=== PATIENT | female | born 1990 | race Caucasian/White ===

== ENCOUNTER 2017-07-14 23:16 | Emergency (ER) | payer BC ==
[2017-07-15 00:03] VITALS: BP 130/80
== END 2017-07-15 00:08 ==
LOC: ER 23:16
DX: Z02.89 Encounter for other administrative examinations (principal); F17.200 Nicotine dependence, unspecified, uncomplicated; F12.10 Cannabis abuse, uncomplicated; Z79.899 Other long term (current) drug therapy
CPT/HCPCS: 99283

== ENCOUNTER 2019-12-23 15:58 | Emergency (ER) | payer SELFPAY ==
[~2019-12-23] VITALS: Ht 167.6 cm; Wt 54.5 kg
[2019-12-23 16:01] VITALS: BP 139/48
[2019-12-23] MEDS ORDERED: LORazepam 2 mg/ml vial IM ONE (16:15)
--- NOTE | 2019-12-23 17:26 | NUR ---
PTS GAVE LAYWERS NAME AND NUMBER TO CALL HIS NAME IS DARRYL [phone], HE GAVE HER MOTHERS NAME AND NUMBER HER MOTHERS NAME IS ELDER HARRINGTON [phone], PSYCIATRIST BHASKAR MANCIA [phone]. AND ANOTHER DR. BAKARI LE [phone]. I WILL CALL TO GET MORE INFOR ABOUT PATIENT AND A MEDICATION LIST FOR PATIENT
--- NOTE | 2019-12-23 17:31 | NUR ---
TRIED TO CALL MOM TO GET MORE INFO I LEFT A MESSAGE
--- NOTE | 2019-12-23 17:46 | NUR ---
PT UP TO BATHROOM TAKING HER WATER BOTTLE WITH HER. RN ATTEMPTED TO PLACE HAT IN TOILET FOR URINE COLLECTION, PT. STATED "I CAN PEE IN THE CUP", BUT DIDN'T. PT STATED SHE HAS TO TALK TO HER MAINTENANCE SUPERVISOR BEFORE LEAVING A SAMPLE OF HER DNA.
--- NOTE | 2019-12-23 17:53 | NUR ---
PT ASKED TO CALL BELEN AND TALK TO HIM, SHE GAVE UA
[2019-12-23] MEDS ORDERED: OLANZapine 2.5MG tablet PO SCH (18:10)
[2019-12-23 18:11] LABS: URINE HCG NEGATIVE (NEG)
[2019-12-23] MEDS ORDERED: olanzapine 10mg tablet PO ONE (18:15)
[2019-12-23 18:23] LABS: URINE AMPHETAMINE SCREEN NEGATIVE (Neg); URINE BARBITUATE SCREEN NEGATIVE (Neg); URINE BENZODIAZEPINES SCREEN NEGATIVE (Neg); URINE CANNABINOID SCREEN POSITIVE (Neg); URINE COCAINE SCREEN NEGATIVE (Neg); URINE METHADONE SCREEN NEGATIVE (Neg); URINE OPIATE SCREEN NEGATIVE (Neg); URINE PHENCYCLIDINE SCREEN NEGATIVE (Neg)
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
--- NOTE | 2019-12-23 20:15 | NUR ---
BREAKING PRIMARY RN- WILL CONT TO MONITOR.
--- NOTE | 2019-12-23 20:28 | NUR ---
RONAK CHAVEZ INQUIRING ABOUT PT'S LAB STATUS- THAT THEY STILL NEED TO BE DRAWN IN ORDER TO MEDICALLY CLEAR PATIENT. WILL LET PRIMARY RN-MICKEY KNOW OF INQUIRY AND TO SPEAK TO RONAK CHAVEZ REGARDING THIS.
--- NOTE | 2019-12-23 21:00 | NUR ---
PT ALLOWED SURVEILLANCE AGENT TO DRAW LABS, WHILE AWAKE PT WAS DISORGANIZED AND RESISTIVE TO CARE
--- NOTE | 2019-12-23 21:10 | NUR ---
PT REFUSED HS ZYPREXA, BLISTER PACKAGING MACHINE OPERATOR ENCOURAGES HER TO TAKE THE MEDICATION, BUT SHE RESPONDS, "NOPE i DON'T NEED IT THANK YOU" AND PULLS THE COVERS OVER HER HEAD.
[2019-12-23 21:30] LABS: BASOPHILS # (AUTO) 0.1 X10'3 (0-0.2); BASOPHILS % (AUTO) 0.4 % (0-1); EOSINOPHILS # (AUTO) 0.1 X10'3 (0-0.9); EOSINOPHILS % (AUTO) 0.6 % (0-6); HEMATOCRIT 37.6 % (35.0-45.0); HEMOGLOBIN 12.4 g/dl (12.0-16.0); LYMPHOCYTES # (AUTO) 2.3 X10'3 (1.1-4.8); LYMPHOCYTES % (AUTO) 19.7 % (21-51); MEAN CORPUSCULAR HEMOGLOBIN 30.8 PG (27.0-31.0); MEAN CORPUSCULAR VOLUME 93.4 FL (78-98); MEAN PLATELET VOLUME 7.7 FL (7.4-10.4); MONOCYTES # (AUTO) 0.5 X10'3 (0-0.9); MONOCYTES % (AUTO) 4.5 % (2-12); NEUTROPHILS # (AUTO) 8.8 X10'3 (1.8-7.7); NEUTROPHILS % (AUTO) 74.8 % (42-75); PLATELET COUNT 291 X10'3 (140-440); RED BLOOD COUNT 4.03 X10'6 (4.20-5.60); RED CELL DISTRIBUTION WIDTH 14.3 % (11.5-14.5); WHITE BLOOD COUNT 11.8 X10'3 (4.5-11.0)
[2019-12-23 21:42] LABS: ALANINE AMINOTRANSFERASE 26 U/L (12-78); ALBUMIN 3.3 G/DL (3.4-5.0); ALBUMIN/GLOBULIN RATIO 1.3 (1.1-1.5); ALKALINE PHOSPHATASE 50 IU/L (46-116); ANION GAP 6 (8-16); ASPARTATE AMINO TRANSFERASE 19 U/L (10-37); BILIRUBIN,TOTAL 0.2 MG/DL (0.1-1.0); BLOOD UREA NITROGEN 9 MG/DL (7-18); CALCIUM 8.3 MG/DL (8.5-10.1); CHLORIDE 109 MMOL/L (99-107); GLUCOSE 97 MG/DL (70-104); POTASSIUM 4.1 MMOL/L (3.5-5.1); SODIUM 142 MMOL/L (135-145); TOTAL CARBON DIOXIDE 27.2 MMOL/L (24-32); TOTAL PROTEIN 5.8 G/DL (6.4-8.2); eGFR 74 ML/MIN
[2019-12-23 21:43] LABS: ETHANOL < 0.010 GM/DL (0.0-0.010)
--- NOTE | 2019-12-23 21:50 | NUR ---
breaking primary RN- will cont to monitor.
--- NOTE | 2019-12-23 22:39 | NUR ---
packet faxed to [facility]
--- NOTE | 2019-12-24 00:47 | NUR ---
PT asleeping on back, RR 14, even and unlabored.
--- NOTE | 2019-12-24 02:58 | NUR ---
Pt wakes up occasionally and makes delusional statements, says names and thinks she has windows around her. She drifts back off to sleep unaided.
--- NOTE | 2019-12-24 05:42 | NUR ---
ATTEMPTED TO TAKE VITALS AT 5:10 PATIENT REFUSED. TRIED AGAIN AT 5:40 PATIENT REFUSED AGAIN
--- NOTE | 2019-12-24 05:50 | NUR ---
PT IS A POOR HISTORIAN AND CANNOT RECALL HER MEDICATIONS. HER MOTHER ALSO DOES NOT KNOW WHAT MEDICATIONS MYLA TAKES. MOTHER STATES SHE WAS AT [facility] 1 YEAR AGO AND ALSO IS A PATIENT OF .
--- NOTE | 2019-12-24 05:58 | NUR ---
PT WAKES UP LABILE, SHE STATES SHE IS AND NEEDS TO GO HOME. THIS RN INFORMS HER THE TEST WAS NEGATIVE AND SHE RESPONDS, "WELL ITS WRONG IT'S A LIE, I AM ." DIESEL LOCOMOTIVE FIRER/FIREMAN TRIES TO ASK PT AGAIN HER MEDICATION REGIMEN AND SHE STATES, "I DON'T HAVE TO TELL YOU THAT." PT TALKS ABOUT SUING THE HOSPITAL FOR DOING A TEST.
[2019-12-24 07:06] LABS: CLARITY,URINE SLIGHTLY CLOUDY (Clear); COLOR,URINE YELLOW (Yellow); GLUCOSE, URINE NEGATIVE (Neg); KETONES,URINE NEGATIVE (Neg); LEUKOCYTE ESTERASE ,URINE NEGATIVE (Neg); NITRITES, URINE NEGATIVE (Neg); OCCULT BLOOD,URINE NEGATIVE (Neg); PH,URINE 8.5 (4.8-8.0); PROTEIN,URINE NEGATIVE (Neg); UROBILINOGEN,URINE 0.2 E.U/dL (0.2-1.0)
[2019-12-24 07:14] LABS: UA COLLECTION TYPE NON-SPECIFIED
[2019-12-24 07:15] LABS: AMORPHOUS PHOSPHATES 1+; BACTERIA,URINE NONE SEEN /HPF (Neg); MUCUS STRANDS FEW /LPF (Neg); RBC,URINE NONE SEEN /HPF (0-2); SQUAMOUS EPITHELIAL CELL,UR FEW /LPF (FEW); WBC,URINE 0-4 /HPF (0-4)
--- NOTE | 2019-12-24 07:17 | NUR ---
PT HAS BEEN UP AND DOWN OUT OF BED TALKING TO HERSELF AND THEN ASKING OF WE CAN CALL HER ATTENY. TALKING ABOUT HOW SHE WANTS TO GO HOME AND DOES NOT LIKE HAVING PEOPLE WATCH HER SLEEP AND MONITER HER ALL NIGHT LONG.
--- NOTE | 2019-12-24 08:52 | NUR ---
breakfast given ate some and now in bed resting
--- NOTE | 2019-12-24 09:36 | NUR ---
patient asleep at this time.We will monitor.
--- NOTE | 2019-12-24 09:58 | NUR ---
pt up a walking around and aggatated wanting her attorneys number given her the number that she wanted. keeps talking that she needs natural light and she does not need to be here and mental health holds do not have to last 3 days. also talking that she should not be exposed to covid like she is being held here. socal worker at bedside talking to her right now
== END 2019-12-24 11:31 | disposition home or self-care (01) ==
LOC: ER 15:59
DX: F23 Brief psychotic disorder (principal); F31.9 Bipolar disorder, unspecified; F12.90 Cannabis use, unspecified, uncomplicated; Z98.890 Other specified postprocedural states; Z88.6 Allergy status to analgesic agent; Z88.5 Allergy status to narcotic agent
CPT/HCPCS: 36415; 80053; 80305; 80320; 81001; 81025; 85025; 96372; 99285; J2060

== ENCOUNTER 2020-01-11 11:31 | Emergency (ER) | payer SELFPAY ==
[~2020-01-11] VITALS: Ht 167.6 cm; Wt 65.9 kg
[~2020-01-11 11:31] MED LIST: DIAZ5TAB PO
[2020-01-11 12:15] LABS: CLARITY,URINE SLIGHTLY CLOUDY (Clear); COLOR,URINE YELLOW (Yellow); GLUCOSE, URINE NEGATIVE (Neg); KETONES,URINE NEGATIVE (Neg); LEUKOCYTE ESTERASE ,URINE NEGATIVE (Neg); NITRITES, URINE NEGATIVE (Neg); OCCULT BLOOD,URINE NEGATIVE (Neg); PROTEIN,URINE NEGATIVE (Neg); URINE HCG NEGATIVE (NEG); UROBILINOGEN,URINE 0.2 E.U/dL (0.2-1.0)
[2020-01-11 12:16] LABS: UA COLLECTION TYPE CLN CATCH MIDSTREAM
[2020-01-11 12:26] LABS: BACTERIA,URINE FEW /HPF (Neg); MUCUS STRANDS FEW /LPF (Neg); RBC,URINE 0-2 /HPF (0-2); SQUAMOUS EPITHELIAL CELL,UR MANY /LPF (FEW); WBC,URINE 0-4 /HPF (0-4)
[2020-01-11 12:27] LABS: AMORPHOUS PHOSPHATES 3+
[2020-01-11 14:10] LABS: URINE AMPHETAMINE SCREEN POSITIVE (Neg); URINE BARBITUATE SCREEN NEGATIVE (Neg); URINE BENZODIAZEPINES SCREEN NEGATIVE (Neg); URINE CANNABINOID SCREEN POSITIVE (Neg); URINE COCAINE SCREEN NEGATIVE (Neg); URINE METHADONE SCREEN NEGATIVE (Neg); URINE OPIATE SCREEN NEGATIVE (Neg); URINE PHENCYCLIDINE SCREEN NEGATIVE (Neg)
[2020-01-11 14:23] LABS: BASOPHILS # (AUTO) 0.1 X10'3 (0-0.2); BASOPHILS % (AUTO) 0.6 % (0-1); EOSINOPHILS % (AUTO) 0.5 % (0-6); HEMATOCRIT 40.8 % (35.0-45.0); HEMOGLOBIN 13.7 g/dl (12.0-16.0); LYMPHOCYTES # (AUTO) 1.7 X10'3 (1.1-4.8); LYMPHOCYTES % (AUTO) 17.5 % (21-51); MEAN CORPUSCULAR HEMOGLOBIN 31.1 PG (27.0-31.0); MEAN CORPUSCULAR HGB CONC 33.6 g/dL (33.0-36.5); MEAN CORPUSCULAR VOLUME 92.5 FL (78-98); MEAN PLATELET VOLUME 7.1 FL (7.4-10.4); MONOCYTES # (AUTO) 0.7 X10'3 (0-0.9); MONOCYTES % (AUTO) 6.8 % (2-12); NEUTROPHILS # (AUTO) 7.4 X10'3 (1.8-7.7); NEUTROPHILS % (AUTO) 74.6 % (42-75); PLATELET COUNT 368 X10'3 (140-440); RED BLOOD COUNT 4.41 X10'6 (4.20-5.60); RED CELL DISTRIBUTION WIDTH 14.2 % (11.5-14.5); WHITE BLOOD COUNT 9.9 X10'3 (4.5-11.0)
[2020-01-11 14:46] LABS: ALANINE AMINOTRANSFERASE 32 U/L (12-78); ALBUMIN 3.8 G/DL (3.4-5.0); ALBUMIN/GLOBULIN RATIO 1.3 (1.1-1.5); ALKALINE PHOSPHATASE 58 IU/L (46-116); ANION GAP 10 (8-16); ASPARTATE AMINO TRANSFERASE 23 U/L (10-37); BILIRUBIN,TOTAL 0.3 MG/DL (0.1-1.0); BLOOD UREA NITROGEN 8 MG/DL (7-18); BUN/CREATININE RATIO 10.1 (6.6-38.0); CALCIUM 9.4 MG/DL (8.5-10.1); CHLORIDE 105 MMOL/L (99-107); CREATININE 0.79 MG/DL (0.40-0.90); GLUCOSE 91 MG/DL (70-104); SODIUM 139 MMOL/L (135-145); TOTAL CARBON DIOXIDE 24.3 MMOL/L (24-32); TOTAL PROTEIN 6.8 G/DL (6.4-8.2); eGFR 86 ML/MIN
[2020-01-11 14:54] LABS: ETHANOL < 0.010 GM/DL (0.0-0.010); POTASSIUM 4.2 MMOL/L (3.5-5.1)
--- NOTE | 2020-01-11 15:36 | NUR ---
PACKAGE SENT TO [facility]
[2020-01-11 17:44] VITALS: BP 94/56
[2020-01-11] MEDS ORDERED: [UNRECOGNIZED DRUG - CODE] PO (18:42)
--- NOTE | 2020-01-11 19:07 | NUR ---
DURING PT INTERVIEW WITH [facility], PT BECAME ANGRY AND WAS YELLING AT INTERVIEWER, REFUSING TO ANSWER FURTHER QUETSIONS. PT BECAME FUTHER HOSTILE, IS INTERNALLY PREOCCUPIED AND LAUGHING TO SELF IN BED, PT WAS STATING "HOW CAN I HAVE A HEALTHY BABY AFTER ONLY ONE STRING CHEESE ALL DAY." PT HAS BEEN INFORMED SHE IS NOT ACCORDING TO URINE SAMPLE TEST EARLIER TODAY, PT REFUSING TO ACCEPT THIS INFORMATION. PT TANGENTAL AND RAMBLING TO INTERVIEWER AND WALKED AWAY AND WENT TO BATHROOM. PT THEN RETURNED AND WAS GIVEN FOOD.
[2020-01-11] MEDS: METHAMPHETAMINE HCL 5 MG PO SCH ×2 (19:30→19:37)
--- NOTE | 2020-01-11 19:40 | NUR ---
[facility] RETURNED TO ATTEMPT TO ASSESS PT, PT BECOMING MORE DELUSIONAL, TANGENTIAL, AND NONREDIRECTABLE. ALSO BECOMING MORE DEMANDING OF STAFF AND YELLING AT STAFF/[facility], [facility] INTERVIEWER. JIM DIETZ MADE AWARE OF PT BEHAVIOR AND RECEIVED VERBAL ORDER FOR HALDOL 5MG IM, ATIVAN 2MG IM, AND BENADRYL 25MG IM NOW. ORDER PLACED RECEIVED.
[2020-01-11] MEDS ORDERED: haloperidol lactate 5mg/ml inj IM ONE (19:50)
[2020-01-11] MEDS ORDERED: LORazepam 2 mg/ml vial IM ONE (19:50)
[2020-01-11] MEDS ORDERED: diphenhydrAMINE 50 mg/ml inj IM ONE (19:50)
--- NOTE | 2020-01-11 20:00 | NUR ---
PT IS REQUSTING WATER AND ASKING TO SLEEP. ER MEDICATIONS HELD AT THIS TIME PT IS COOPERATING WITH STAFF. PT NOW LYING DOWN. WILL CONTINUE TO MONITOR PT FOR BEHAVIORS.
--- NOTE | 2020-01-11 20:32 | NUR ---
PT NOW APPEARS TO BE SLEEPING PEACEFULLY ON RIGHT SIDE. NO S/S RESPIRATORY DISTRESS AND NO ACTING OUT AT THIS TIME.
--- NOTE | 2020-01-12 01:42 | NUR ---
PT WOKE UP, SAT UP IN BED, AND BEGAN TALKING TO SELF ABOUT "THE MARSHALL" AND OTHER NONSENSICAL TOPICS. DOES NOT TALK TO OR ENGAGE WITH STAFF. PT APPEARS MANIC AND TANGENTIAL WITH PRESSURED SPEECH. PT THEN SHORTLY AFTER LAID BACK DOWN IN BED AND NOW APPEARS TO BE SLEEPING. NO OBSERVABLE S/S DISTRESS AT THIS TIME.
[2020-01-12] MEDS: METHAMPHETAMINE HCL 5 MG PO SCH ×2 (01:58→08:00)
--- NOTE | 2020-01-12 04:38 | NUR ---
Pt woke up and ambulated to bathroom. Pt then asked "are they going to do the sonogram soon? its rude to make me wait longer. I've asked about a thousand times and its rude for me to have to ask any more." Pt then laid back down in bed and is attempting to fall back asleep. Pt still not accepting of the information that she is not . Pt appears to be delusional and manic, but is minimally redirectable at this time. Pt similarly woke up a few times briefly in the night saying nonsensical statements such as "tetherball, softball, baseball" and other mumbled speech before quickly falling back asleep.
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
--- NOTE | 2020-01-12 06:04 | NUR ---
PT REFUSED MORNING VITAL SIGNS.
--- NOTE | 2020-01-12 07:26 | NUR ---
PT RESTING ON RIGHT SIDE RR EQUAL AND UNLABORED
--- NOTE | 2020-01-12 09:03 | NUR ---
PT WILL AWAKE AT TIMES AND SPEAK TO HERSELF, THEN RETURN TO RESTING. PT ATE BREAKFAST. PT IS AWAITING [facility] EVAL
--- NOTE | 2020-01-12 11:23 | NUR ---
PT RESTING ON RIGHT SIDE RR EQUAL AND UNLABORED
--- NOTE | 2020-01-12 12:43 | NUR ---
PT RESTING ON RIGHT SIDE, EYES CLOSED RR EQUAL AND UNLABORED
--- NOTE | 2020-01-12 13:14 | NUR ---
TALKING WITH MENTAL HEALTH, SITTING UP IN BED.
--- NOTE | 2020-01-12 13:35 | NUR ---
ESCORTED OUT WITH SECURITY
== END 2020-01-12 13:34 | disposition home or self-care (01) ==
LOC: ER 11:31
DX: F23 Brief psychotic disorder (principal); R10.84 Generalized abdominal pain; R53.83 Other fatigue; F31.9 Bipolar disorder, unspecified; F12.90 Cannabis use, unspecified, uncomplicated; Z98.890 Other specified postprocedural states; Z88.6 Allergy status to analgesic agent; Z88.8 Allergy status to other drugs, medicaments and biological substances; Z79.899 Other long term (current) drug therapy
CPT/HCPCS: 36415; 80053; 80305; 80320; 81001; 81025; 84443; 85025; 99283